=== PATIENT | male | born 1995 | race Caucasian/White ===

== ENCOUNTER 2017-02-11 14:37 | Emergency (ER) | payer SELFPAY ==
[~2017-02-11] VITALS: Ht 162.6 cm; Wt 65.7 kg
[2017-02-11 14:39] VITALS: TEMP 36.8; Ht 162.6 cm; Wt 65.7 kg
[2017-02-11] MEDS ORDERED: HYDR-5688 PO (16:41)
[2017-02-11] MEDS ORDERED: CIPR0.3S OP (16:41)
[2017-02-11 16:52] VITALS: BP 112/68; PULSE 70; O2SAT 98
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
== END 2017-02-11 16:55 | disposition home or self-care (01) ==
LOC: C.EDB 14:38 → C.EDD 16:55
DX: S05.02XA Injury of conjunctiva and corneal abrasion without foreign body, left eye, initial encounter (principal); X58.XXXA Exposure to other specified factors, initial encounter

== ENCOUNTER 2017-03-17 14:45 | Emergency (ER) | payer OTHER ==
[~2017-03-17] VITALS: Ht 162.6 cm; Wt 65.5 kg
[~2017-03-17 14:45] MED LIST: HYDR-5688 PO
[2017-03-17 14:51] VITALS: TEMP 36.4; Ht 162.6 cm; Wt 65.5 kg
[2017-03-17] MEDS ORDERED: ACETAMINOPHEN 325 MG TAB PO STA (15:03)
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
[2017-03-17] MEDS ORDERED: DEXAMETHASONE SOD INJ 10 MG/ML VIAL IV STA (15:42)
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
[2017-03-17 16:45] VITALS: BP 114/71; PULSE 74; O2SAT 97
[2017-03-17] MEDS ORDERED: NORCO 5/325MG HOME PACK PO STA (16:45)
[2017-03-17] MEDS ORDERED: HYDR-5688 PO (16:48)
[2017-03-17] MEDS ORDERED: METH4PAK PO (16:48)
== END 2017-03-17 17:00 | disposition home or self-care (01) ==
LOC: C.EDB 14:47 → C.EDD 17:00
DX: S06.0X0A Concussion without loss of consciousness, initial encounter (principal); M50.21 Other cervical disc displacement, high cervical region; M25.562 Pain in left knee; M25.512 Pain in left shoulder; V48.5XXA Car driver injured in noncollision transport accident in traffic accident, initial encounter; Y92.410 Unspecified street and highway as the place of occurrence of the external cause

== ENCOUNTER 2017-11-12 09:02 | Emergency (ER) | payer OTHER ==
[~2017-11-12] VITALS: Ht 162.6 cm; Wt 66.0 kg
[2017-11-12 09:09] VITALS: Ht 162.6 cm; Wt 66.0 kg
[2017-11-12 09:42] LABS: ISTAT IONIZED CALCIUM 1.23 mmol/l (1.12-1.32); ISTAT POTASSIUM 4.3 mEq/L (3.3-5.0)
[2017-11-12] MEDS ORDERED: OPTIRAY 320 IV PRN (09:45)
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
[2017-11-12 11:46] VITALS: BP 109/65; PULSE 68; TEMP 36.8; O2SAT 99
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
== END 2017-11-12 11:46 | disposition home or self-care (01) ==
LOC: C.EDB 09:04 → C.EDA 11:46
DX: S30.1XXA Contusion of abdominal wall, initial encounter (principal); S39.012A Strain of muscle, fascia and tendon of lower back, initial encounter; S16.1XXA Strain of muscle, fascia and tendon at neck level, initial encounter; V89.2XXA Person injured in unspecified motor-vehicle accident, traffic, initial encounter

== ENCOUNTER 2017-11-13 05:59 | Emergency (ER) | payer OTHER ==
[~2017-11-13] VITALS: Ht 162.6 cm; Wt 65.9 kg
[2017-11-13 06:03] VITALS: TEMP 36.8; Ht 162.6 cm; Wt 65.9 kg
[2017-11-13 06:27] LABS: BASO % 0.1 %; BASO ABS # 0.01 K/uL (0-0.2); EOS % 0.9 %; EOS ABS # 0.07 K/uL (0-0.5); HEMOGLOBIN 16.5 g/dL (14.0-18.0); IG# 0.02 K/uL (0.00-0.02); LYMPH % 5.7 %; LYMPH ABS # 0.46 K/uL (1.2-3.4); MEAN CELL VOLUME 85.7 fL (80-100); MEAN CORPUSCULAR HEMOGLOBIN 31.4 pg (25-34); MEAN CORPUSCULAR HGB CONC 36.7 g/dl (32-36); MONO % 6.7 %; MONO ABS # 0.54 K/uL (0.11-0.59); NEUT % 86.4 %; NEUT ABS # 7.01 K/uL (1.4-6.5); PLATELET COUNT 207 K/uL (130-400); RED CELL DISTRIBUTION WIDTH CV 12.6 % (11.5-14.5); RED CELL DISTRIBUTION WIDTH SD 39.7 fL (36.4-46.3); WHITE BLOOD COUNT 8.11 K/uL (4.8-10.8)
[2017-11-13] MEDS ORDERED: HYDROmorphone INJ 1 MG/ML SYR IV STA ×2 (06:35→07:22)
[2017-11-13] MEDS ORDERED: KETOROLAC TROMETHAMINE 30 MG/ML VIAL IV STA (06:35)
[2017-11-13] MEDS ORDERED: METOCLOPRAMIDE HCL INJ 5 MG/ML 2 ML VIAL IV STA (06:35)
[2017-11-13 06:41] LABS: ALBUMIN 4.5 gm/dl (3.4-5.0); CALCIUM 8.8 mg/dl (8.5-10.1); CREATININE 0.94 mg/dl (0.60-1.40); POTASSIUM 3.9 mmol/L (3.5-5.1)
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
[2017-11-13] MEDS ORDERED: ONDANSETRON INJ 2 MG/ML 2 ML VIAL IV STA (07:22)
[2017-11-13] MEDS ORDERED: OPTIRAY 320 IV PRN (09:30)
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
[2017-11-13] MEDS ORDERED: PROMETHAZINE HCL INJ 25 MG in SODIUM CHLORIDE 0.9% 50ML 50 ML IV STA (09:41)
[2017-11-13] MEDS ORDERED: SODIUM CHLORIDE 0.9% 1000ML 1,000 ML IV STA (10:40)
[2017-11-13 11:46] VITALS: BP 114/60; PULSE 85; O2SAT 99
== END 2017-11-13 11:47 | disposition short-term general hospital (02) ==
LOC: C.EDB 06:00 → C.EDA 11:47
DX: R10.84 Generalized abdominal pain (principal); R11.10 Vomiting, unspecified; V40.5XXA Car driver injured in collision with pedestrian or animal in traffic accident, initial encounter; Y92.488 Other paved roadways as the place of occurrence of the external cause

== ENCOUNTER 2017-12-08 11:24 | Emergency (ER) | payer OTHER ==
[~2017-12-08] VITALS: Ht 162.6 cm; Wt 64.6 kg
[2017-12-08 11:27] VITALS: BP 118/67; PULSE 74; TEMP 36.7; O2SAT 99; Ht 162.6 cm; Wt 64.6 kg
[2017-12-08] MEDS ORDERED: DOXYCYCLINE HYCLATE 100 MG CAP PO STA (11:48)
--- NOTE | 2017-12-08 16:56 | EMERGENCY ROOM VISIT NOTE ---
ED Visit Note First contact with patient: 11:34 CHIEF COMPLAINT: Tick in the left posterior thigh HISTORY OF PRESENT ILLNESS: This 22-year-old white male patient noticed a tick embedded in his left posterior thigh. They attempted to remove the tick but it broke off. A portion of the head remains embedded in the skin. It has been on for about 24-48 hours. They deny any fevers, chills, sweats, joint aches, nausea, vomiting, or increasing redness. There is a small area of discoloration around the tick bite. pain is 0/10. REVIEW OF SYSTEMS: Head: No headache, injury or neck pain. Neck: No pain, stiffness, or swelling. Neurological: No headache, new changes in mental status, vertigo, focal weakness, numbness. Gastrointestinal: No abdominal pain , blood in stools, diarrhea, loss of appetite, nausea, or vomiting. General: No fever or chills, fatigue, loss of appetite, or significant recent weight gain or loss. Musculoskeletal: No joint aches or joint swelling. Previous surgeries: None Medical history: Benign Current Medications: None Allergies: NKDA Family History: Unremarkable. Parents are living. SOCIAL HISTORY: Employed. Lives with his and children. No tobacco use, rare EtOH use. PHYSICAL EXAM: Vital Signs: Afebrile. Reviewed and filed in patient's chart. Skin: Warm and dry with good turgor. No rashes or lesions. No evidence of erythema migrans. Patient has a small black foreign body embedded in the skin on the posterior of his left thigh. It appears to be the head of a tick. There is a small area of discoloration around the tick bite. It measures 6 mm. in diameter. The patient is not diaphoretic. No abrasions. EMERGENCY DEPARTMENT COURSE: Informed oral consent was obtained for removal. Site was cleansed with an alcohol swab. A tic twister was used to grasp the head and remove it without difficulty. No remaining foreign body was present. Wound was inspected using magnification glasses. DIAGNOSIS: Foreign body ( tick) in the left posterior thigh DISCHARGE INSTRUCTIONS & TREATMENT: Patient was educated regarding today's findings. Conservative care measures were discussed. Watch the area for signs of infection. Keep bacitracin on it for a few days. tick bite handout was provided. Tylenol and ibuprofen every 6 hours as needed for discomfort. Follow- up with your PCP as needed. Prophylaxis for Lyme disease was instituted by giving the patient a one time dose of doxycycline 200 mg orally. Problem List Medical Problems: (1) No Known Active Medical Problems Status: Chronic Current/Historical Medications No Active Prescriptions or Reported Meds Allergies Coded Allergies: No Known Allergies (Unverified , 12/08/17) Vital Signs Date Time Temp Pulse Resp B/P (MAP) Pulse Ox O2 Delivery O2 Flow Rate FiO2 12/08/17 11:27 36.7 74 16 118/67 99 Room Air Medications Administered Medications (Trade) Dose Ordered Sig/Bonifacio Route Start Time Stop Time Status Last Admin Dose Admin Doxycycline Hyclate (Vibramycin Cap) 200 mg NOW STAT PO 12/08/17 11:48 12/08/17 11:50 DC 12/08/17 12:01 200 MG Departure Information Impression Primary Impression: Tick bite of left thigh Dispostion Home / Self-Care Condition GOOD Prescriptions No Active Prescriptions or Reported Meds Forms HOME CARE DOCUMENTATION FORM, IMPORTANT VISIT INFORMATION Patient Instructions Bites Tick, My [employer] Additional Instructions Cleanse the area with soap and water Watch for any ring type rashes over the next 4 weeks Follow-up with your PCP as needed
== END 2017-12-08 12:10 | disposition home or self-care (01) ==
LOC: C.EDB 11:26 → C.EDD 12:10
DX: S70.362A Insect bite (nonvenomous), left thigh, initial encounter (principal); W57.XXXA Bitten or stung by nonvenomous insect and other nonvenomous arthropods, initial encounter

== ENCOUNTER 2020-06-11 23:38 | Inpatient (IN) ==
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
[2020-06-12 00:29] LABS: Basophils # (auto) 0.03 K/uL (0-0.2); Basophils % (auto) 0.3 %; Eosinophils # (auto) 0.26 K/uL (0-0.5); Hematocrit (blood only) 44.6 % (42-52); Hemoglobin 15.5 g/dL (14.0-18.0); Immature Granulocytes # (auto) 0.03 K/uL (0.00-0.02); Immature Granulocytes % (auto) 0.3 %; Lymphocytes # (auto) 1.86 K/uL (1.2-3.4); Lymphocytes % (auto) 21.3 %; Mean Corpuscular Hemoglobin 31.1 pg (25-34); Mean Corpuscular Hgb Conc 34.8 g/dL (32-36); Mean Corpuscular Volume 89.6 fL (80-100); Mean Platelet Volume 9.5 fL (7.4-10.4); Monocytes % (auto) 6.9 %; Neutrophils # (auto) 5.95 K/uL (1.4-6.5); Neutrophils % (auto) 68.2 %; Platelet Count 251 K/uL (130-400); RDW Coefficient of Variation 12.9 % (11.5-14.5); RDW Standard Deviation 41.9 fL (36.4-46.3); Red Blood Count 4.98 M/uL (4.7-6.1); White Blood Count 8.73 K/uL (4.8-10.8)
[2020-06-12 00:49] LABS: BUN Creatinine Ratio 19.1 (10-20); C Reactive Protein 1.2 mg/dl (0-0.29); Calcium 8.7 mg/dl (8.5-10.1); Creatinine Clr Calc Pharmacy 100.1 ml/min; Est GFR (African American) 107.6; Est GFR (Non-African American) 92.8; Potassium 3.8 mmol/L (3.5-5.1)
[2020-06-12] MEDS ORDERED: fentaNYL citrate 100 MCG/2 ML VIAL IV STA (00:54)
[2020-06-12] MEDS ORDERED: PIPERACILLIN/TAZOBACTAM 4.5 GM/120 ML BAG IV ONE ×2 (01:17→08:02)
[2020-06-12] MEDS ORDERED: diphenhydrAMINE 50 MG/ML VIAL IV STA (01:28)
[2020-06-12] MEDS: SODIUM CHLORIDE 0.9% 1000ML 1,000 ML IV SCH ×3 (01:35→17:29)
[2020-06-12 01:37] LABS: Lyme Ab IgG w/WB Rflx Negative (Negative); Lyme Ab IgM w/WB Rflx Negative (Negative)
[2020-06-12] MEDS ORDERED: HYDROmorphone INJ 0.5 MG/0.5 ML SYR IV STA (06:40)
[2020-06-12] MEDS ORDERED: HYDROmorphone INJ 0.5 MG/0.5 ML SYR IV PRN ×2 (06:40→08:17)
[2020-06-12] MEDS ORDERED: PIPERACILL/TAZOBAC CONSULT ACTIVE PRN (08:02)
[2020-06-12] MEDS ORDERED: diphenhydrAMINE Capsule 25 MG CAP PO PRN (08:09)
[2020-06-12] MEDS ORDERED: ALUMINUM/MAGNESIUM SUSP 30 ML UDC PO PRN (08:09)
[2020-06-12] MEDS ORDERED: ONDANSETRON INJ 2 MG/ML 2 ML VIAL IV PRN (08:09)
[2020-06-12] MEDS ORDERED: SODIUM CHLORIDE 0.9% 1000ML 1,000 ML IV SCH (08:15)
[2020-06-12] MEDS ORDERED: oxyCODONE HCL IR 5 MG TAB (IMMEDIATE RELEASE) PO PRN ×2 (08:17)
[2020-06-12] MEDS ORDERED: KETOROLAC TROMETHAMINE 15 MG/ML VIAL IV PRN (08:17)
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
[2020-06-12] MEDS ORDERED: PIPERACILLIN/TAZOBACTAM 4.5 GM/120ML D5W ONE (09:07)
[2020-06-12] MEDS: ACETAMINOPHEN 500 MG TAB PO SCH ×2 (11:15→18:14)
[2020-06-12] MEDS ORDERED: KETOROLAC TROMETHAMINE 15 MG/ML VIAL IV ONE (12:33)
--- NOTE | 2020-06-12 12:40 | Orthopedic Progress Note ---
Date of Service June 12, 2020 Assessment & Plan (1) Pain of finger of right hand: (2) Infection of hand: No progression with infectious findings. Recommended continued IV antibiotics. NPO at midnight Will re-eval in am after >24hrs abx. Continue splint. Pain control Present on Admission?: Yes Admission and Anticipated Discharge Date Admission Date: June 12, 2020 Subjective Not much interval improvement in pain. Tolerating splint. No nausea. No malaise Review of Systems Review of Systems: All systems reviewed & are unremarkable except as noted in HPI & below Physical Exam Physical Exam: R hand: continued mild swelling about RF MCPJ. Focal tenderness along A1 sarthak - no proximal tenderness. No tenderness past PIPJ. Minimal discomfort with flexion. +pain with passive RF extension. Constitutional: WD/WN, vitals as above no acute distress and not intoxicated appearing Results & Data ([facility]) Vital Signs (Past 12 Hours) Vital Signs Temp Pulse Pulse Resp BP BP Pulse Ox 06/12/20 10:00 36.5 C 74 18 134/84 99 06/12/20 09:30 85 18 110/72 98 06/12/20 09:19 36.5 C 06/12/20 07:45 66 18 113/71 97 06/12/20 05:28 78 18 148/77 H 98 06/12/20 03:56 88 18 145/77 H 99 06/12/20 02:10 83 18 131/79 98 PG Care Time/CCT Total # of Minutes Spent Total Time Spent with Patient: Total time spent is greater than 50% in coordination of care (as documented) at patient's floor/unit and/or counseling patient: Coding Level of Care Code None Diagnoses Pain of finger of right hand M79.644 Infection of hand L08.9
[2020-06-12] MEDS: PIPERACILLIN/TAZOBACTAM 3.375 GM/115 ML BAG IV SCH ×2 (13:31→21:59)
[2020-06-12] MEDS ORDERED: CETIRIZINE HCL 10 MG TABLET PO SCH (21:00)
[2020-06-13] MEDS: SODIUM CHLORIDE 0.9% 1000ML 1,000 ML IV SCH ×3 (01:48→18:04)
[2020-06-13] MEDS: ACETAMINOPHEN 500 MG TAB PO SCH (01:48)
[2020-06-13] MEDS: PIPERACILLIN/TAZOBACTAM 3.375 GM/115 ML BAG IV SCH ×2 (05:51→14:51)
[2020-06-13 06:17] LABS: Basophils # (auto) 0.02 K/uL (0-0.2); Basophils % (auto) 0.4 %; Eosinophils # (auto) 0.25 K/uL (0-0.5); Eosinophils % (auto) 4.7 %; Hematocrit (blood only) 40.3 % (42-52); Immature Granulocytes # (auto) 0.02 K/uL (0.00-0.02); Immature Granulocytes % (auto) 0.4 %; Lymphocytes # (auto) 1.53 K/uL (1.2-3.4); Lymphocytes % (auto) 28.6 %; Mean Corpuscular Hgb Conc 34.7 g/dL (32-36); Mean Corpuscular Volume 89.4 fL (80-100); Mean Platelet Volume 9.5 fL (7.4-10.4); Monocytes # (auto) 0.39 K/uL (0.11-0.59); Monocytes % (auto) 7.3 %; Neutrophils # (auto) 3.14 K/uL (1.4-6.5); Neutrophils % (auto) 58.6 %; Platelet Count 215 K/uL (130-400); RDW Coefficient of Variation 12.8 % (11.5-14.5); RDW Standard Deviation 41.8 fL (36.4-46.3); Red Blood Count 4.51 M/uL (4.7-6.1); White Blood Count 5.35 K/uL (4.8-10.8)
[2020-06-13] MEDS ORDERED: ACETAMINOPHEN 500 MG TAB PO PRN (08:00)
--- NOTE | 2020-06-13 09:55 | Orthopedic Progress Note ---
Date of Service June 13, 2020 Assessment & Plan (1) Pain of finger of right hand: (2) Infection of hand: He is made objective improvement on exam with 24 hours of parenteral antibiotics. There is no clear indication for surgery this morning. I recommend staying the course with IV antibiotics, soft tissue rest in the splint, and elevation. I will evaluate him later today. It is possible he will be able to go to close outpatient followup, on oral antibiotic regimen after 48 hours of IV antibiotics. His laboratory work is encouraging. Present on Admission?: Yes Admission and Anticipated Discharge Date Admission Date: June 12, 2020 Subjective He reports no significant events overnight. Pain may be slightly better. He d enies any fevers nor malaise. Review of Systems Review of Systems: All systems reviewed & are unremarkable except as noted in HPI & below Physical Exam Physical Exam: Right upper extremity: Splint was taken down for exam. There seems to be resolving erythema on the palmar side. He can achieve full passive extension with minimal discomfort which is an improvement. He remains focally tender over the A1 sarthak. There is no fusiform swelling. He has no proximal tenderness along the flexor tendon sheath. He is nontender over the dorsal aspect of the MCP joint today. Overall, it looks better. Results & Data ([facility]) Vital Signs (Past 12 Hours) Vital Signs Temp Pulse Resp BP Pulse Ox 06/13/20 07:23 36.5 C 73 16 142/77 H 96 06/12/20 23:10 36.5 C 65 16 134/77 97 Laboratory Tests 06/13/20 06/13/20 06/13/20 06:01 06:01 06:01 WBC 5.35 ESR 2 C-Reactive Protein 1.04 H PG Care Time/CCT Total # of Minutes Spent Total Time Spent with Patient: Total time spent is greater than 50% in c oordination of care (as documented) at patient's floor/unit and/or counseling patient: Coding Level of Care Code 69333 Subseq Hosp Care Lvl 3 Diagnoses Pain of finger of right hand M79.644 Infection of hand L08.9
--- NOTE | 2020-06-13 18:38 | Discharge Summary ---
Date of Service June 13, 2020 Admission HPI Per Admitting Provider 25-year-old otherwise healthy male presents to the ER after 72 hours progressive right ring finger metacarpal pain, erythema and edema. He states that he was scratched by a friend's cat approximately 1 week ago. He did not think much of it but he subsequent developed this pain and swelling which began 4 days after injury. He denies any fevers or chills. He complains primarily of pain with motion through the ring finger. He locates the worst pain along the palmar aspect of the metacarpal phalangeal joint. He was worried that there was some redness spreading up towards his wrist, so he went to the emergency room last night. Principal Diagnosis Right ring finger flexor tenosynovitis vs metacarpophalangeal joint infection Discharge Exam Right hand: Reduced edema and tenderness. Mild tenderness to palpation at A1 sarthak. No lingering erythema. No pain on passive stretch. Painless composite fist. No proximal lymphadenopathy. Constitutional well developed and well nourished; no acute distress and not intoxicated appearing ENMT external ear and nose normal, oropharynx normal Respiratory normal respiratory effort; no respiratory distress Cardiovascular Extremities: normal capillary refill; no edema Skin no rashes, warm and dry Psychiatric A+Ox3, euthymic affect Discharge Data Allergies Allergy/AdvReac Type Severity Reaction Status Date / Time No Known Allergies Allergy Unverified 06/12/20 00:23 Consultations 06/12/20 08:02 Consult Orthopedic Surgery Routine Ordered Studies H & H 06/12/20 06/13/20 Range/Units 00:17 06:01 Hgb 15.5 14.0 (14.0-18.0) g/dL Hct 44.6 40.3 L (42-52) % Laboratory Tests 06/12/20 06/12/20 06/13/20 00:17 00:17 06:01 WBC 8.73 5.35 ESR C-Reactive Protein 1.20 H 06/13/20 06/13/20 06:01 06:01 WBC ESR 2 C-Reactive Protein 1.04 H Hospital Course (1) Infection of hand: Admitted from ED with persistent pain at RF MCPJ. Improved on exam and function with parenteral antibiotics by 48 hours. No surgical indications encountered. Transitioned to oral antibiotic and close outpatient followup. Total Time Total Time Spent Total Time Spent (In Minutes): 20 Total Time Includes: Examination of the Patient, Discharge Planning, Medication Reconciliation and Other Discharge Plan Discharge Items Patient Disposition: Home - Self-Care Reason For Visit: RIGHT HAND INFECTION Discharge Diagnosis: Right ring finger flexor tenosynovitis Condition on Discharge: Good Activity: Per Instructions section Lifting: Gradually increase as tolerated Bathing: No limitations Exercise/Sports: Gradually increase as tolerated Driving/Machine Use: No limitations Non-emergency contact: Surgeon Call non-emergency contact if: you have any medication questions, your pain is not controlled, your pain is concerning for you, you have a fever and your temperature is above 101 Follow-up/Referrals: Sully Collazo CRNP [Primary Care Provider] - Hernan Dhaliwal MD [Surgeon] - Diet: Regular Addtl Attending Provider Instructions: Use brace for comfort and protection. Keep right hand elevated most of the day. TAKE ANTIBIOTIC PRESCRIBED UNTIL COMPLETION. Remove brace for stretching and motion three times a day. Use warm compresses as needed for discomfort. Please contact Dr. Dhaliwal at the ortho clinic with increased pain or fever. [facility] will contact you for an appointment time on Friday 06/15. Pending Studies at Discharge: No Stand-Alone Forms: My [facility] To8to, Work/School Release (Inpt), Smoking Cessation Medications and DC Order Prescriptions: New amoxicillin-pot clavulanate [Augmentin] 875-125 mg Tablet 1 tab PO BID 10 Days Qty: 20 RF: 0 Continued cetirizine 10 mg tablet 10 mg PO HS RF: 0 ibuprofen 200 mg Tablet 200 mg PO Q6H PRN (Reason: Pain) RF: 0 No Action fluticasone propionate 50 mcg/actuation spray,suspension 1 spray INTRANASAL QAM RF: 0 Discharge Orders: Discharge Order (Routine); Ordered 06/13/20 Ordered By: Hernan Dhaliwal Admission Data Admit Date/Time: 06/12/20 08:10 Attending Provider: Hernan Dhaliwal Admit Provider: Hernan Dhaliwal Primary Care Provider: Sully Collazo Other Providers: Hernan Dhaliwal Coding Level of Care Code D/C Day Management <30 mins Diagnoses Infection of hand L08.9
[2020-06-13] MEDS ORDERED: AMOXICILLIN/CLAVULANATE 875 MG TAB PO ONE (18:45)
[2020-06-14] MEDS ORDERED: AMOXICILLIN/CLAVULANATE 875 MG TAB PO SCH (08:00)
== END 2020-06-13 19:50 | disposition home or self-care (01) | DRG 558 ==
LOC: ED 23:38 → 3E 06-12 08:10